=== PATIENT | male | born 1960 | race Caucasian/White ===

== ENCOUNTER 2020-10-18 10:04 | Inpatient (IN) | payer BC, OTHER ==
[~2020-10-18] VITALS: Ht 170.2 cm; Wt 78.3 kg
--- NOTE | 2020-10-18 10:08 | ED Chest Pain ---
General Stated Complaint: CHEST PAIN | LEFT ARM PAIN | SOB History of Present Illness Date Seen by Provider: Oct 18, 2020 Time Seen by Provider: 10:08 Initial Comments 60-year-old male presents with left-sided chest pain. The chest pain started last night radiates to his back and is left arm in his upper neck. He is got some mild shortness of breath. Patient denies any nausea or vomiting. Pain is been pretty much consistent since the pain started. [facility]. Allergies and Home Medications Allergies Coded Allergies: morphine (Verified Allergy, Intermediate, ITCHING AND HALLUCINATIONS, 10/18/20) Patient Home Medication List Home Medication List Reviewed: Yes Review of Systems Review of Systems Constitutional: No chills, No fever Respiratory: Denies Cough; Shortness of Air Cardiovascular: Chest Pain; Denies Palpitations, Denies Syncope Gastrointestinal: Denies Abdominal Pain, Denies Nausea, Denies Vomiting Genitourinary: No Symptoms Reported Musculoskeletal: no symptoms reported Skin: no symptoms reported Psychiatric/Neurological: No Symptoms Reported Endocrine: No Symptoms Reported Past Dxvfamd-Wrozel-Nplyhz Hx Past Med/Social Hx: Reviewed Nursing Past Med/Soc Hx Physical Exam Vital Signs Vital Signs - First Documented 10/18/20 10:04 Temp 36.3 Pulse 75 Resp 18 B/P (MAP) 177/88 (117) Pulse Ox 96 O2 Delivery Room Air Capillary Refill : Height, Weight, BMI Height: '" Weight: lbs. oz. kg; BMI Method: General Appearance: Mild Distress HEENT: PERRL/EOMI Neck: Non Tender, Supple Respiratory: Lungs Clear, Normal Breath Sounds Cardiovascular: Regular Rate, Rhythm, No Edema Gastrointestinal: Non Tender, Soft Extremity: Normal Capillary Refill, Normal Inspection Neurologic/Psychiatric: Alert, Oriented x3, No Motor/Sensory Deficits, Normal Mood/Affect, client relations associate II-XII Norm as Tested Skin: Normal Color, Warm/Dry Progress/Results/Core Measures Results/Orders Lab Results Laboratory Tests Test 10/18/20 10:15 Range/Units White Blood Count 12.4 H 4.3-11.0 10^3/uL Red Blood Count 6.26 H 4.35-5.85 10^6/uL Hemoglobin 18.1 H 13.3-17.7 G/DL Hematocrit 54 40-54 % Mean Corpuscular Volume 86 80-99 FL Mean Corpuscular Hemoglobin 29 25-34 PG Mean Corpuscular Hemoglobin Concent 34 32-36 G/DL Red Cell Distribution Width 14.4 10.0-14.5 % Platelet Count 249 130-400 10^3/uL Mean Platelet Volume 9.5 7.4-10.4 FL Immature Granulocyte % (Auto) 0 % Neutrophils (%) (Auto) 64 42-75 % Lymphocytes (%) (Auto) 26 12-44 % Monocytes (%) (Auto) 8 0-12 % Eosinophils (%) (Auto) 2 0-10 % Basophils (%) (Auto) 1 0-10 % Neutrophils # (Auto) 7.9 H 1.8-7.8 X 10^3 Lymphocytes # (Auto) 3.2 1.0-4.0 X 10^3 Monocytes # (Auto) 1.0 0.0-1.0 X 10^3 Eosinophils # (Auto) 0.2 0.0-0.3 10^3/uL Basophils # (Auto) 0.1 0.0-0.1 10^3/uL Immature Granulocyte # (Auto) 0.0 0.0-0.1 10^3/uL Prothrombin Time 13.1 12.2-14.7 SEC INR Comment 1.0 0.8-1.4 Activated Partial Thromboplast Time 26 24-35 SEC Sodium Level 137 135-145 MMOL/L Potassium Level 4.0 3.6-5.0 MMOL/L Chloride Level 105 98-107 MMOL/L Carbon Dioxide Level 23 21-32 MMOL/L Anion Gap 9 5-14 MMOL/L Blood Urea Nitrogen 11 7-18 MG/DL Creatinine 0.88 0.60-1.30 MG/DL Estimat Glomerular Filtration Rate > 60 BUN/Creatinine Ratio 13 Glucose Level 127 H 70-105 MG/DL Calcium Level 9.5 8.5-10.1 MG/DL Corrected Calcium 9.7 8.5-10.1 MG/DL Magnesium Level 1.7 1.6-2.4 MG/DL Total Bilirubin 0.4 0.1-1.0 MG/DL Aspartate Amino Transf (AST/SGOT) 36 H 5-34 U/L Alanine Aminotransferase (ALT/SGPT) 18 0-55 U/L Alkaline Phosphatase 121 40-136 U/L Myoglobin 37.2 10.0-92.0 NG/ML Troponin I 1.81 *H <0.30 NG/ML Total Protein 7.3 6.4-8.2 GM/DL Albumin 3.8 3.2-4.5 GM/DL My Orders Orders - VERONIAC CHRISTIAN L DO Cbc With Automated Diff (10/18/20 10:08) Magnesium (10/18/20 10:08) Chest 1 View Ap/Pa Only (10/18/20 10:08) Ekg Tracing (10/18/20 10:08) Comprehensive Metabolic Panel (10/18/20 10:08) Myoglobin Serum (10/18/20 10:08) Protime With Inr (10/18/20 10:08) Partial Thromboplastin Time (10/18/20 10:08) O2 (10/18/20 10:08) Monitor-Rhythm Ecg Trace Only (10/18/20 10:08) Lipid Panel (10/19/20 06:00) Ed Iv/Invasive Line Start (10/18/20 10:08) Troponin I Fs (10/18/20 10:08) Aspirin Chewable Tablet (Baby Aspirin Ch (10/18/20 10:30) Fentanyl Injection (Sublimaze Injection (10/18/20 11:00) Clopidogrel Tablet (Plavix Tablet) (10/18/20 11:15) Enoxaparin Injection (Lovenox Injection) (10/18/20 11:15) Metoprolol Succinate (Xl) Tab (Toprol Xl (10/18/20 11:15) Medications Given in ED Current Medications Medications Dose Ordered Sig/Stoney Route Start Time Stop Time Status Last Admin Dose Admin Aspirin 324 mg ONCE ONCE PO 10/18/20 10:30 10/18/20 10:31 DC 10/18/20 11:12 324 MG Clopidogrel Bisulfate 300 mg ONCE ONCE PO 10/18/20 11:15 10/18/20 11:16 10/18/20 11:14 300 MG Enoxaparin Sodium 80 mg ONCE ONCE SC 10/18/20 11:15 10/18/20 11:16 10/18/20 11:14 80 MG Fentanyl Citrate 50 mcg ONCE ONCE IVP 10/18/20 11:00 10/18/20 11:01 DC 10/18/20 11:14 50 MCG Vital Signs/I&O 10/18/20 10:04 Temp 36.3 Pulse 75 Resp 18 B/P (MAP) 177/88 (117) Pulse Ox 96 O2 Delivery Room Air Progress Progress Note : Progress Note Patient with no acute findings on his EKG. However he does not have an elevated troponin. Called and [facility] with [facility] [place] who is on diversion. When called and discussed with Dr. Concepcion bog cutter [facility]. Patient to be given Plavix 300 mg p.o. x1, Lovenox 1 abimael per kg, Toprol-XL 100 mg x 1. Called and discussed with Dr. Matthews who accepted patient. Patient to be transferred to [facility] ICU in stable but guarded condition. Initial ECG Impression Date: Oct 18, 2020 Initial ECG Impression Time: 10:05 Initial ECG Rate: 91 Initial ECG Rhythm: Normal Sinus Initial ECG Impression: Nonspecific Changes Comment Sinus rhythm, right bundle branch block, no acute ST elevation Diagnostic Imaging Diagonstic Imaging: Xray Plain Films/CT/US/NM/MRI: chest Comments [facility], [facility]. [place], [place] NAME: EARLE ALCALA [facility] REC#: [id number] PT STATUS: REG ER : 1960 PHYSICIAN: VERONICA CHRISTIAN DO ADMIT DATE: 10/18/20/ER FS Draft Date of Exam:10/18/20 CHEST 1 VIEW AP/PA ONLY HISTORY: Chest pain since last night COMPARISON: None TECHNIQUE: Frontal view of the chest FINDINGS: Lung volumes are mildly large. There are interstitial opacities in the lung bases, and hyperlucency in the upper lobes, suggestive of chronic obstructive disease with fibrotic changes. No pleural effusion or pneumothorax is seen. A calcified granuloma seen in the right upper lung. The cardiac silhouette is normal in size. IMPRESSION: 1. Findings of chronic obstructive disease and fibrotic changes. An interstitial infiltrate is difficult to exclude. Departure Communication (Admissions) Time/Spoke to Admitting Phy: 11:[address] Ayala with admission to ICU, will give Plavix, Lovenox, Toprol-XL per Dr. Concepcion Time/Spoke to Consulting Phy: 11:00 Impression Primary Impression: Non-ST elevation (NSTEMI) myocardial infarction Disposition: 30 STILL A PATIENT Condition: Critical Admissions Decision to Admit Reason: Admit from ER (General) Decision to Admit/Date: Oct 18, 2020 Time/Decision to Admit Time: 11:00 VERONICA CHRISTIAN DO Oct 18, 2020 10:08
[2020-10-18] MEDS ORDERED: ASPIRIN 81 MG CHEW (CHILDREN'S ASA) PO ONE (10:30)
--- NOTE | 2020-10-18 10:37 | Diagnostic Imaging Report ---
HISTORY: Chest pain since last night COMPARISON: None TECHNIQUE: Frontal view of the chest FINDINGS: Lung volumes are mildly large. There are interstitial opacities in the lung bases, and hyperlucency in the upper lobes, suggestive of chronic obstructive disease with fibrotic changes. No pleural effusion or pneumothorax is seen. A calcified granuloma seen in the right upper lung. The cardiac silhouette is normal in size. IMPRESSION: 1. Findings of chronic obstructive disease and fibrotic changes. An interstitial infiltrate is difficult to exclude. Dictated by: Dictated on workstation # [id number]
[2020-10-18 10:48] LABS: BASOPHILS # (AUTO) 0.1 10^3/uL (0.0-0.1); BASOPHILS % (AUTO) 1 % (0-10); EOSINOPHILS # (AUTO) 0.2 10^3/uL (0.0-0.3); EOSINOPHILS % (AUTO) 2 % (0-10); HEMATOCRIT 54 % (40-54); HEMOGLOBIN 18.1 G/DL (13.3-17.7); LYMPHOCYTES # (AUTO) 3.2 X 10^3 (1.0-4.0); LYMPHOCYTES % (AUTO) 26 % (12-44); MEAN CORPUSCULAR HEMOGLOBIN 29 PG (25-34); MEAN CORPUSCULAR HGB CONC 34 G/DL (32-36); MEAN CORPUSCULAR VOLUME 86 FL (80-99); MEAN PLATELET VOLUME 9.5 FL (7.4-10.4); MONOCYTES % (AUTO) 8 % (0-12); NEUTROPHILS # (AUTO) 7.9 X 10^3 (1.8-7.8); NEUTROPHILS % (AUTO) 64 % (42-75); PLATELET COUNT 249 10^3/uL (130-400); WHITE BLOOD COUNT 12.4 10^3/uL (4.3-11.0)
[2020-10-18 10:49] LABS: PROTHROMBIN TIME PATIENT 13.1 SEC (12.2-14.7)
[2020-10-18 10:52] LABS: ALKALINE PHOSPHATASE 121 U/L (40-136); BILIRUBIN,TOTAL 0.4 MG/DL (0.1-1.0); BUN/CREATININE RATIO 13; CALCIUM 9.5 MG/DL (8.5-10.1); CARBON DIOXIDE 23 MMOL/L (21-32); CHLORIDE 105 MMOL/L (98-107); CREATININE SERUM 0.88 MG/DL (0.60-1.30); GFR ESTIMATED > 60; GLUCOSE 127 MG/DL (70-105); MAGNESIUM 1.7 MG/DL (1.6-2.4); SODIUM 137 MMOL/L (135-145)
[2020-10-18 10:53] LABS: ALANINE AMINOTRANSFERASE 18 U/L (0-55); ALBUMIN 3.8 GM/DL (3.2-4.5); TOTAL PROTEIN 7.3 GM/DL (6.4-8.2)
[2020-10-18] MEDS ORDERED: fentaNYL INJECTION 100 MCG/2 ML AMP IVP ONE (11:00)
[2020-10-18] MEDS ORDERED: meTOproloL SUCCINATE 50 MG (TOPROL XL) TAB PO SCH (11:15)
[2020-10-18] MEDS ORDERED: CLOPIDOGREL 300 MG (PLAVIX) TABLET PO ONE ×2 (11:15→16:25)
[2020-10-18] MEDS ORDERED: ENOXAPARIN 80 MG/0.8 ML (LOVENOX) SYR SC ONE (11:15)
[2020-10-18] MEDS ORDERED: fentaNYL INJECTION 100 MCG/2 ML AMP IVP STA (12:07)
[2020-10-18] MEDS: fentaNYL INJECTION 100 MCG/2 ML AMP IV PRN ×2 (14:30→19:57)
[2020-10-18] MEDS ORDERED: NS IV 1000 ML 1,000 ML IV SCH (14:30)
[2020-10-18] MEDS ORDERED: HEParin (CATH LAB) 2,000 ML IV ONE (14:43)
[2020-10-18] MEDS ORDERED: LIDOCAINE 1% INJ 20 ML 20 ML VIAL ONE (14:43)
[2020-10-18] MEDS ORDERED: fentaNYL INJECTION 100 MCG/2 ML AMP IVP PRN (14:45)
[2020-10-18] MEDS ORDERED: ONDANSETRON 4 MG/2 ML (SDV) Z0FRAN ONE (14:46)
[2020-10-18] MEDS: ONDANSETRON 4 MG/2 ML (SDV) Z0FRAN IVP PRN ×2 (14:52→17:28)
[2020-10-18] MEDS ORDERED: MIDAZOLAM 5 MG/5 ML (VERSED) VIAL ONE (14:54)
[2020-10-18] MEDS ORDERED: fentaNYL INJECTION 100 MCG/2 ML AMP ONE (14:54)
[2020-10-18] MEDS ORDERED: NITRO DRIP 25000 MCG/D5W 250 ML IV ONE (14:55)
[2020-10-18] MEDS ORDERED: CATHETER FLUSH 10 ML SYR IV PRN (15:00)
--- NOTE | 2020-10-18 15:08 | History & Physical-Hospitalist ---
History of Present Illness HPI/Chief Complaint Pt is a 60yoCM with a PMH of PAD, HTN, HLD, and active tobacco abuse who presented to the ER due to chest pain. He works at night and was working last night when he developed chest pain on the left side of his chest that radiated to his left arm and jaw. It persisted until the morning when he decided to seek evaluation in the ER. He complains of accompanying SOB as well and nausea. He has an extensive history of PAD with a reported 10 stents in his legs. He denies a known history of CAD. He reports a recent history of influenza. His has thought he has not looked well for a couple of weeks but he has attributed it to that. His EKG did not have signs concerning for a STEMI but troponin was found to be 1.8 and he was admitted fur further cardiac evaluation. Despite doses of fentanyl (has a morphine allergy), Plavix, ASA, and lovenox he continues to have severe chest pain. Plan is for him to go to the laborer hoisting this afternoon for further evaluation. Source: patient Date Seen 10/18/20 Time Seen by a Provider: 15:03 Attending Physician Tremaine Ayala MD PCP SelfOscar MD Referring Physician Date of Admission Oct 18, 2020 at 14:00 Home Medications & Allergies Home Medications Reviewed patient Home Medication Reconciliation performed by pharmacy medication reconciliations gas technician and/or nursing. Patients Allergies have been reviewed. Allergies Allergies Coded Allergies morphine (Verified Allergy, Intermediate, ITCHING AND HALLUCINATIONS, 10/18/20) Past Qaubmnz-Sbcyyn-Tadxqc Hx Past Med/Social Hx: Reviewed Nursing Past Med/Soc Hx Patient Social History Marrital Status: Employed/Student: employed Alcohol Use: Occasionally Uses Recreational Drug Use: No Smoking Status: Current Everyday Smoker Cigaretts per day: 20 Type Used: Cigarettes 2nd Hand Smoke Exposure: Yes Recent Foreign Travel: No Contact w/other who traveled: No Recent Hopitalizations: No Recent Infectious Disease Expo: No Seasonal Allergies Seasonal Allergies: No Past Medical History Surgeries: Coronary Stent, Neurological, Orthopedic Cardiac: High Cholesterol, Hypertension Neurological: Neuropathy History of Blood Disorders: No Family History Reviewed Nursing Family Hx Heart Disease, Diabetes Review of Systems Constitutional: No chills, No fever; malaise EENTM: no symptoms reported Respiratory: see HPI Cardiovascular: see HPI Gastrointestinal: No abdominal pain; nausea; No vomiting Genitourinary: no symptoms reported Musculoskeletal: no symptoms reported Skin: no symptoms reported Psychiatric/Neurological: No Symptoms Reported Physical Exam Physical Exam Vital Signs Vital Signs - First Documented 10/18/20 10:04 Temp 36.3 Pulse 75 Resp 18 B/P (MAP) 177/88 (117) Pulse Ox 96 O2 Delivery Room Air Capillary Refill : Less Than 3 Seconds Height, Weight, BMI Height: '" Weight: lbs. oz. kg; 27.06 BMI Method: General Appearance: Mild Distress (appears uncomfortable), Thin HEENT: PERRL/EOMI, Moist Mucous Membranes Neck: Normal Inspection, Supple Respiratory: Lungs Clear, No Respiratory Distress Cardiovascular: Regular Rate, Rhythm, No Murmur Gastrointestinal: Normal Bowel Sounds, Non Tender, Soft Extremity: Normal Capillary Refill, No Calf Tenderness, No Pedal Edema Neurologic/Psychiatric: Alert, Oriented x3, Normal Mood/Affect Skin: Normal Color, Warm/Dry Results Results/Procedures Labs Laboratory Tests 10/18/20 10:15 Patient resulted labs reviewed. Imaging: Reviewed Imaging Report Imaging [facility] [place] NAME: EARLE ALCALA [facility] REC#: [id number] PT STATUS: REG ER : 1960 PHYSICIAN: VERONICA CHRISTIAN DO ADMIT DATE: 10/18/20/ER FS Signed Date of Exam:10/18/20 CHEST 1 VIEW AP/PA ONLY HISTORY: Chest pain since last night COMPARISON: None TECHNIQUE: Frontal view of the chest FINDINGS: Lung volumes are mildly large. There are interstitial opacities in the lung bases, and hyperlucency in the upper lobes, suggestive of chronic obstructive disease with fibrotic changes. No pleural effusion or pneumothorax is seen. A calcified granuloma seen in the right upper lung. The cardiac silhouette is normal in size. IMPRESSION: 1. Findings of chronic obstructive disease and fibrotic changes. An interstitial infiltrate is difficult to exclude. Dictated by: Dictated on workstation # [id number] Dict: 10/18/20 1032 Trans: 10/18/20 1123 [id number] Interpreted by: ALINA CASTILLO MD Electronically signed by: ALINA CASTILLO MD 10/18/20 1123 Assessment/Plan Admission Diagnosis NSTEMI Admission Status: Inpatient Order (span 2 midnights) Reason for Inpatient Admission: see below Assessment and Plan NSTEMI PAD HTN HLD Troponin 1.8 on arrival Plan for cath today per cardiology Continue fentanyl for pain ASA, Plavix, Lovenox and Toprol given Zofran for nausea Tobacco abuse Recommended cessation Will need patient education DVT ppx: Lovenox Clinical Quality Measures AMI/AHF: ASA po Prior to arrival: Yes (81 MG) TREMAINE AYALA MD Oct 18, 2020 15:08
[2020-10-18] MEDS ORDERED: diphenhydrAMINE 50 MG/ML INJ (BENADRYL) ONE (15:11)
[2020-10-18] MEDS ORDERED: HEParin 1000 UNIT/ML (10ML VIAL) FOR BOLUS ONE (15:23)
[2020-10-18] MEDS ORDERED: niCARdipine 25 MG/10 ML (CARDENE) AMP IV ONE (15:39)
[2020-10-18] MEDS ORDERED: NS (IVPB) 250 ML ONE (15:40)
[2020-10-18] MEDS ORDERED: EPTIFIBATIDE BOLUS 20 ML IV ONE (15:47)
[2020-10-18] MEDS ORDERED: ASPIRIN 81 MG CHEW (CHILDREN'S ASA) ONE (16:25)
--- NOTE | 2020-10-18 16:26 | Consultation-Cardiology ---
HPI-Cardiology Cardiology Consultation: Date of Consultation 10/18/20 Time Seen by a Provider: 15:40 Date of Admission Attending Physician Trini Ayala MD Admitting Physician Oscar Dorsey MD Consulting Physician JACKELYN LOCK MD, MA, FACP, FACC, FSCAI, CCDS HPI: Chief Complaint: CC: Chest pain HPI: 60 yo man who presented to [facility] ER with 12 hours of chest pain that was midsternal and L parasternal, varying from mod to severe, radiating to the back, associated with some diaphoresis, not experienced before, only partly relieved with s/l NTG. Troponin was elevated. Ac NSTEMI was diagnosed and he was transfer red to this hosp. He was having cp upon arrival. Accordingly, emergency cath was performed after obtaining informed consent of cath and possible ad hoc PCI (see below). Review of Systems-Cardiology Review of Systems Constitutional: malaise; No tiredness, No weight loss, No weight gain Eyes: No vision change Ears/Nose/Throat: No ear discharge, No nasal drainage, No recent hearing loss Respiratory: other (chronic, slowly progressive, exertional shortness of breath) Cardiovascular: As described under HPI Gastrointestinal: No constipation, No diarrhea, No nausea, No vomiting Genitourinary: No dysuria, No hematuria, No urine frequency changes Musculoskeletal: No back pain, No joint pain Skin: No rash, No ulcerations Psychiatric/Neurological: No focal weakness, No syncope Hematologic: No bleeding abnormalities OVZ-Sjvmek-Swmsqo Hx Patient Social History Marrital Status: Employed/Student: employed Smoking Status: Current Everyday Smoker Cigaretts per day: 20 2nd Hand Smoke Exposure: Yes Past Medical History PMH As described under Assessment. Family Medical History Family Medical History: He does not report fam h/o premature CAD or SCD Allergies and Home Medications Allergies Coded Allergies: morphine (Verified Allergy, Intermediate, ITCHING AND HALLUCINATIONS, 10/18/20) Patient Home Medication List Home Medication List Reviewed: Yes Physical Exam-Cardiology Physical Exam Vital Signs/I&O 10/18/20 10/18/20 10/18/20 10/18/20 10:04 13:11 14:00 15:00 Temp 36.3 36.3 Pulse 75 109 76 Resp 18 18 B/P (MAP) 177/88 (117) 147/68 172/112 (132) 143/106 (118) Pulse Ox 96 99 95 O2 Delivery Room Air Room Air Room Air Room Air Capillary Refill : Less Than 3 Seconds Constitutional: AAO x 3, well-developed, well-nourished HEENT: EOMI, hearing is well preserved; No xanthelasmas are seen Neck: carotid pulses are 2 + bilaterally, with good upstrokes Respiratory: No accessory muscle use; other (good bilateral air entry) Cardiovascular: regular rate-rhythm, S1 and S2, systolic murmur (soft REGGIE at card base) Gastrointestinal: No tender; soft; No guarding, No rebound; audible bowel sounds Extremities: No clubbing, No cyanosis, No significant edema Neurologic/Psychiatric: oriented x 3, other (moves all limbs equally) Skin: No rash on exposed areas, No ulcerations on exposed areas Data Review Labs Laboratory Tests 10/18/20 10:15: White Blood Count 12.4H, Red Blood Count 6.26H, Hemoglobin 18.1H, Hematocrit 54, Mean Corpuscular Volume 86, Mean Corpuscular Hemoglobin 29, Mean Corpuscular Hemoglobin Concent 34, Red Cell Distribution Width 14.4, Platelet Count 249, Mean Platelet Volume 9.5, Immature Granulocyte % (Auto) 0, Neutrophils (%) (Auto) 64, Lymphocytes (%) (Auto) 26, Monocytes (%) (Auto) 8, Eosinophils (%) (Auto) 2, Basophils (%) (Auto) 1, Neutrophils # (Auto) 7.9H, Lymphocytes # (Auto) 3.2, Monocytes # (Auto) 1.0, Eosinophils # (Auto) 0.2, Basophils # (Auto) 0.1, Immature Granulocyte # (Auto) 0.0, Prothrombin Time 13.1, INR Comment 1.0, Activated Partial Thromboplast Time 26, Sodium Level 137, Potassium Level 4.0, Chloride Level 105, Carbon Dioxide Level 23, Anion Gap 9, Blood Urea Nitrogen 11, Creatinine 0.88, Estimat Glomerular Filtration Rate > 60, BUN/Creatinine Ratio 13, Glucose Level 127H, Calcium Level 9.5, Corrected Calcium 9.7, Magnesium Level 1.7, Total Bilirubin 0.4, Aspartate Amino Transf (AST/SGOT) 36H, Alanine Aminotransferase (ALT/SGPT) 18, Alkaline Phosphatase 121, Myoglobin 37.2, Troponin I 1.81*H, Total Protein 7.3, Albumin 3.8 Laboratory Tests 10/18/20 10:15 A/P-Cardiology Assessment/Admission Diagnosis CAD - Ac NSTEMI, treated with PCI to RCA on 10/18/20. See below - Card cath on 10/18/20: LMCA Ok, LAD multiple up to 70% lesions in the mid vessel, approx 50% mid LCX, proximally occluded RCA, LVEDP 7, inferior hypokinesis to akinesis, LVEF 40-45%. RCA treated with PTCA and stenting of the prox RCA with Alp Xience 3.0 x 18 stent, mutiple midvessel and distal lesions of up to 60-70% not intervened on, PDA with thrombus in the distal portion. Chronic tobacco use: smokes cigarettes Discussion and Recomendations * DAPT * Statin * Beta-monika and MIO-inhib if bp tolerates * Advised to quit smoking immediately and completely * Monitor labs Clinical Quality Measures AMI/AHF: ASA po Prior to arrival: Yes (81 MG) JACKELYN LOCK MD FACP FAC CCDS Oct 18, 2020 16:26
[2020-10-18] MEDS ORDERED: PATIENT MAY USE OWN MEDS, ALL PO SCH (16:45)
[2020-10-18] MEDS ORDERED: ACETAMINOPHEN 325 MG TABLET PO PRN (16:45)
[2020-10-18] MEDS ORDERED: SUCRALFATE 1 GM (CARAFATE) TAB PO NR (18:15)
[2020-10-18] MEDS ORDERED: PANTOPRAZOLE 40 MG (PROTONIX) VIAL IV NR (18:15)
[2020-10-18 18:17] LABS: HEMOGLOBIN 17.5 g/dL (13.3-17.7)
[2020-10-18] MEDS: NS IV 1000 ML 1,000 ML IV SCH (19:02)
[2020-10-18] MEDS ORDERED: ATROPINE INJECTION 1 MG/10 ML SYR (ABBOTT) ONE (19:35)
--- NOTE | 2020-10-18 19:58 | CARDIAC CATHETERIZATION ---
DATE OF SERVICE: 10/18/2020 CARDIAC CATHETERIZATION REPORT AND CORONARY INTERVENTION HISTORY: The patient is a 60-year-old gentleman with coronary risk factors, who presented to the emergency room at [facility] with acute non-ST elevation myocardial infarction. He was transferred to this hospital. He was having symptoms at the time of arrival. We proceeded with emergency cardiac catheterization after having obtained an informed consent for cardiac catheterization and possible ad hoc coronary intervention. DESCRIPTION OF PROCEDURE: He was brought to the cardiac catheterization laboratory. Right groin was prepared and draped in the usual sterile fashion. Lidocaine 1% was used for local anesthesia. Modified Seldinger technique was used to advance a 6-Portuguese sheath into the right femoral artery. A 6-Portuguese JL4 catheter was used for left coronary angiography. A 6-Portuguese JR4 catheter was used for right coronary angiography. A 6-Portuguese pigtail catheter was used for left heart catheterization and left ventricular angiography. Subsequently, percutaneous intervention was carried out through the right coronary artery that is described below. PERCUTANEOUS INTERVENTION OF THE RIGHT CORONARY ARTERY: We used 6-Portuguese JR4 guide catheter with a short tip. We engaged the right coronary artery and advanced a ChoICE floppy wire to cross the complete occlusion in the proximal portion of the right coronary. The tip of the wire was placed in the distal vessel. Balloon angioplasty was carried out with Emerge 2.0 x 20 mm, 2.0 x 30 mm, and 2.5 x 30 mm balloon. We also used a thrombectomy catheter for clot extraction. Finally, the proximal part of the right coronary artery was stented with Alpine Xience 3.0 x 18 mm stent that was deployed at 20 atmospheres. Subsequent angiography revealed 0% residual stenosis at the site of complete occlusion and flow in the vessel has improved from FIORDALIZA 0 to FIORDALIZA 3. The mid and the distal right coronary artery had multiple lesions of up to approximately 60% to 70%, which were not intervened on. The posterior descending branch of the right coronary artery has a distal embolus. The patient tolerated the procedure well. HEMODYNAMICS: Left ventricular end-diastolic pressure following coronary angiography was 7 mmHg. There is no significant pressure gradient on pullback across the aortic valve. Ascending aortic pressure was 119/65 with a mean of 85 mmHg. CORONARY ANGIOGRAPHY: Left main coronary artery is free of significant disease. Left anterior descending artery has multiple 60% to 70% stenosis in its mid portion. The left circumflex artery has approximately 50% stenosis in mid portion. Right coronary artery was completely occluded in its proximal portion and was collateralized by the left coronary system. Following percutaneous intervention, the proximal right coronary artery has 0% residual stenosis (following deployment of Alpine Xience 3.0 x 18 mm stent) and the mid and distal right coronary artery had lesions of up to 60% to 70% that were not intervened on. The very distal portion of the posterior descending artery has thrombus in it. LEFT VENTRICULAR ANGIOGRAPHY: Left ventricular angiography was carried out in the right anterior oblique projection. Global left ventricular systolic function is impaired. There is inferior hypokinesis to akinesis. Left ventricular ejection fraction of 40% to 45%. DISCUSSION AND RECOMMENDATIONS: Dual antiplatelet therapy has been initiated. We will give beta-blockers and MIO inhibitors as tolerated. Statin therapy is being initiated. We have advised him to quit smoking immediately and completely. CONCLUSIONS: 1. Coronary artery disease primarily consisting of multiple 70% stenosis in the mid left anterior descending, 50% mid vessel stenosis of the left circumflex, and complete proximal occlusion of the right coronary, to which successful stenting was carried out with an Alpine Xience 3.0 x 18 mm stent. The mid and distal right coronary have multiple stenoses up to approximately 60% to 70% that were not intervened on and the distal portion of the posterior descending branch has thrombus. 2. Impairment of global left ventricular systolic function with ejection fraction of 40% to 45%. 3. Inferior hypokinesis to akinesis. 4. Normal left ventricular end-diastolic pressure. Job ID: [id number] DocumentID: [id number] Dictated Date: 10/18/2020 17:38:00 Steam Pan Sponger Date: 10/18/2020 19:57:10 Dictated By: JACKELYN LOCK MD, MA, FACP, FACC, MTDD
[2020-10-18] MEDS: SUCRALFATE 1 GM (CARAFATE) TAB PO SCH (21:51)
[2020-10-18] MEDS ORDERED: ENOXAPARIN 80 MG/0.8 ML (LOVENOX) SYR SC SCH (23:00)
[2020-10-19] MEDS: NS IV 1000 ML 1,000 ML IV SCH (02:34)
[2020-10-19 03:57] LABS: BASOPHILS # (AUTO) 0.1 10^3/uL (0.0-0.1); BASOPHILS % (AUTO) 1 % (0-10); EOSINOPHILS # (AUTO) 0.2 10^3/uL (0.0-0.3); EOSINOPHILS % (AUTO) 3 % (0-10); HEMATOCRIT 50 % (40-54); HEMOGLOBIN 16.2 g/dL (13.3-17.7); LYMPHOCYTES # (AUTO) 1.7 10^3/uL (1.0-4.0); LYMPHOCYTES % (AUTO) 24 % (12-44); MEAN CORPUSCULAR HEMOGLOBIN 29 pg (25-34); MEAN CORPUSCULAR HGB CONC 33 g/dL (32-36); MEAN CORPUSCULAR VOLUME 89 fL (80-99); MEAN PLATELET VOLUME 10.2 fL (9.0-12.2); MONOCYTES # (AUTO) 0.6 10^3/uL (0.0-1.0); MONOCYTES % (AUTO) 9 % (0-12); NEUTROPHILS # (AUTO) 4.5 10^3/uL (1.8-7.8); NEUTROPHILS % (AUTO) 63 % (42-75); PLATELET COUNT 239 10^3/uL (130-400); WHITE BLOOD COUNT 7.1 10^3/uL (4.3-11.0)
--- NOTE | 2020-10-19 04:17 | Pulmonary Consultation ---
History of Present Illness History of Present Illness Date Seen by Provider: Oct 19, 2020 Time Seen by Provider: 04:15 Date of Admission Allergies and Home Medications Allergies Coded Allergies: morphine (Verified Allergy, Intermediate, ITCHING AND HALLUCINATIONS, 10/18/20) Past Dzhptbg-Kjepzy-Syurjg Hx Past Med/Social Hx: Reviewed Nursing Past Med/Soc Hx Patient Social History Alcohol Use: Occasionally Uses Smoking Status: Current Everyday Smoker Type Used: Cigarettes 2nd Hand Smoke Exposure: Yes Recent Infectious Disease Expo: No Recent Hopitalizations: No Alcohol Use?: Yes Seasonal Allergies Seasonal Allergies: No Past Medical History Surgeries: Yes (10 STENTS, R KNEE SCOPE, L KNEE REPLACEMENT, RT ARM NERVE SX) Coronary Stent, Neurological, Orthopedic Respiratory: No Cardiac: Yes High Cholesterol, Hypertension Neuropathy Genitourinary: No Gastrointestinal: No Musculoskeletal: No Endocrine: No HEENT: No Cancer: No Psychosocial: No Integumentary: No Blood Disorders: No Family Medical History Reviewed Nursing Family Hx Heart Disease, Diabetes Review of Systems Time Seen by Provider: 04:17 Sepsis Event Evaluation Height, Weight, BMI Height: '" Weight: lbs. oz. kg; 27.06 BMI Method: Exam Exam Vital Signs Date Time Temp Pulse Resp B/P (MAP) Pulse Ox O2 Delivery O2 Flow Rate FiO2 10/19/20 01:00 66 10/18/20 23:00 65 106/66 (79) 89 Room Air 10/18/20 22:00 75 114/80 (91) 92 Room Air 10/18/20 21:00 65 106/73 (84) 94 Room Air 10/18/20 20:20 70 114/77 (89) 93 Room Air 10/18/20 20:15 72 120/76 (91) 93 Room Air 10/18/20 20:10 70 118/84 (95) 93 Room Air 10/18/20 20:05 68 112/79 (90) 93 Room Air 10/18/20 20:00 93 Room Air 10/18/20 20:00 69 118/84 (95) 91 Room Air 10/18/20 19:58 71 119/79 (92) 94 Room Air Arterial Line 10/18/20 19:00 65 108/59 (75) 91 Nasal Cannula 2.00 10/18/20 19:00 66 10/18/20 19:00 65 108/59 (75) 95 Room Air 10/18/20 18:45 65 119/65 (83) 93 Nasal Cannula 2.00 10/18/20 18:30 64 119/65 (83) 93 Nasal Cannula 2.00 10/18/20 18:15 63 113/62 (79) 94 Nasal Cannula 2.00 10/18/20 18:00 69 136/75 (95) 97 Nasal Cannula 2.00 10/18/20 17:45 63 127/67 (87) 94 Nasal Cannula 2.00 10/18/20 17:30 68 142/73 (96) 93 Nasal Cannula 2.00 10/18/20 17:15 64 132/71 (91) 95 Nasal Cannula 2.00 10/18/20 17:00 66 149/79 (102) 97 Nasal Cannula 2.00 Automatic Cuff 10/18/20 16:43 89 Room Air 10/18/20 15:00 76 143/106 (118) 95 Room Air 10/18/20 14:30 95 Room Air 10/18/20 14:30 95 Room Air 10/18/20 14:16 70 10/18/20 14:00 172/112 (132) Room Air 10/18/20 13:11 36.3 109 18 147/68 99 Room Air 10/18/20 10:04 36.3 75 18 177/88 (117) 96 Room Air I & O 10/19/20 07:00 Intake Total 1240 ml Output Total 575 ml Balance 665 ml Height & Weight Height: '" Weight: lbs. oz. kg; 27.06 BMI Method: General Appearance: Mild Distress HEENT: PERRL/EOMI Neck: Non Tender, Supple Respiratory: Lungs Clear, Normal Breath Sounds Cardiovascular: Regular Rate, Rhythm, No Edema Capillary Refill: Less Than 3 Seconds Extremity: Normal Capillary Refill, Normal Inspection Neurologic/Psychiatric: Alert, Oriented x3, No Motor/Sensory Deficits, Normal Mood/Affect, rendering equipment tender II-XII Norm as Tested Skin: Normal Color, Warm/Dry Results Lab Laboratory Tests 10/18/20 10:15 10/18/20 18:08 10/19/20 03:10 Assessment/Plan Assessment/Plan NSTEMI s/p CATH stent to RCA -Cardiology following Tobacco dependance -Education Probable COPD -Out pt PFT Nocturnal hypoxia -Out pt testing PAD HTN STEVE CARTER DO Oct 19, 2020 04:17
[2020-10-19 04:28] LABS: BUN/CREATININE RATIO 16; CALCIUM 8.3 MG/DL (8.5-10.1); CARBON DIOXIDE 20 MMOL/L (21-32); CHLORIDE 113 MMOL/L (98-107); CHOLESTEROL 152 MG/DL (< 200); CREATININE SERUM 0.96 MG/DL (0.60-1.30); GFR ESTIMATED > 60; GLUCOSE 134 MG/DL (70-105); HDL CHOLESTEROL 21 MG/DL (40-60); MAGNESIUM 1.7 MG/DL (1.6-2.4); PHOSPHORUS 3.2 MG/DL (2.3-4.7); SODIUM 140 MMOL/L (135-145); TRIGLYCERIDES 208 MG/DL (<150); VLDL CHOLESTEROL 42 MG/DL (5-40)
[2020-10-19] MEDS: SUCRALFATE 1 GM (CARAFATE) TAB PO SCH ×4 (06:22→19:44)
--- NOTE | 2020-10-19 07:36 | Diagnostic Imaging Report ---
EXAMINATION: Chest radiograph, portable AP view. DATE: 10/19/2020 2:42 AM INDICATION: 60-year-old male, dyspnea. COMPARISON: October 18, 2020. FINDINGS: Heart size and mediastinal contours are unchanged. There is no identified pneumothorax. There is no large pleural effusion. There are fairly coarse appearing interstitial opacities bilaterally which are grossly unchanged. There is graft material overlying the mid abdomen. IMPRESSION: 1. Coarse interstitial appearing lung opacities which is similar to the comparison exam. This may reflect chronic lung changes although given lack of earlier comparison imaging, this is difficult to definitively state. Pulmonary edema and atypical infectious etiologies would be in the differential diagnosis. Recommend comparison with prior imaging if available. Dictated by: Dictated on workstation # [id number]
[2020-10-19] MEDS: ASPIRIN 81 MG CHEW (CHILDREN'S ASA) PO SCH (08:01)
[2020-10-19] MEDS: PANTOPRAZOLE 40 MG (PROTONIX) VIAL IV SCH ×2 (08:02→19:43)
[2020-10-19] MEDS: CLOPIDOGREL 75 MG (PLAVIX) TABLET PO SCH (08:02)
--- NOTE | 2020-10-19 08:24 | Progress Note - Hospitalist ---
Subjective HPI/CC On Admission Date Seen by Provider: Oct 19, 2020 Time Seen by Provider: 08:18 Pt is a 60yoCM with a PMH of PAD, HTN, HLD, and active tobacco abuse who presented to the ER due to chest pain. He works at night and was working last night when he developed chest pain on the left side of his chest that radiated to his left arm and jaw. It persisted until the morning when he decided to seek evaluation in the ER. He complains of accompanying SOB as well and nausea. He has an extensive history of PAD with a reported 10 stents in his legs. He denies a known history of CAD. He reports a recent history of influenza. His has thought he has not looked well for a couple of weeks but he has attributed it to that. His EKG did not have signs concerning for a STEMI but troponin was found to be 1.8 and he was admitted fur further cardiac evaluation. Despite doses of fentanyl (has a morphine allergy), Plavix, ASA, and lovenox he continues to have severe chest pain. Plan is for him to go to the builder's labourer this afternoon for further evaluation. Subjective/Events-last exam Pt reports doing well from a cardiac standpoint. No further chest pain. SOB resolved. Only complaint is that he is hungry and is awaiting breakfast tray. Objective Exam Vital Signs Vital Signs Date Time Temp Pulse Resp B/P (MAP) Pulse Ox O2 Delivery O2 Flow Rate FiO2 10/19/20 07:55 94 Room Air 10/19/20 07:25 37.2 10/19/20 06:00 63 110/73 (85) 10/18/20 19:00 2.00 10/18/20 13:11 18 Capillary Refill : Less Than 3 Seconds General Appearance: No Apparent Distress, WD/WN Respiratory: Lungs Clear, No Respiratory Distress Cardiovascular: Regular Rate, Rhythm, No Murmur Neurologic/Psychiatric: Alert, Oriented x3, Normal Mood/Affect Results/Procedures Lab Laboratory Tests 10/18/20 10:15 10/18/20 18:08 10/19/20 03:10 Patient resulted labs reviewed. Imaging: Reviewed Imaging Report Assessment/Plan Assessment and Plan Assess & Plan/Chief Complaint NSTEMI PAD HTN HLD Troponin up to 6 last night Underwent cardiac cath with stenting to RCA Continue DAPT, Toprol, Lipitor Echo pending Zofran for nausea Per RN was supposed to go back to the builder's labourer today for staged procedure but per builder's labourer today he is not scheduled to return, Cardiology managing; defer to their expertise Hematemesis Vomited up some blood last night Hemoglobin has been stable T&S done last night Continue PPI and carafate Given stent done yesterday he needs to continue on DAPT Tobacco abuse Recommended cessation Will need patient education DVT ppx: Hold Lovenox for now and continue SCDs with hematemesis Clinical Quality Measures AMI/AHF: ASA po Prior to arrival: Yes (81 MG) TREMAINE MANUEL MD Oct 19, 2020 08:24
--- NOTE | 2020-10-19 08:57 | Progress Note - Cardiology ---
Cardiology SOAP Progress Note Subjective: In bed Wants to go home Family x1 at the bedside No c/o CP, SOB, palpitations No c/o right groin discomfort Objective: I&O/Vital Signs 10/19/20 10/19/20 10/20/20 10/20/20 20:00 23:54 01:00 04:00 Temp 36.6 36.4 Pulse 80 71 72 Resp 18 20 B/P (MAP) 125/73 (90) 144/74 (97) Pulse Ox 92 94 O2 Delivery Room Air Room Air Room Air 10/20/20 07:00 Pulse 66 10/20/20 00:00 Intake Total 1120 ml Output Total 250 ml Balance 870 ml Side: right Groin site without hematoma: Yes Condition: DP/PT pulses palpable, extremity w/d/p Bruising: mild bruising Constitutional: AAO x 3, well-developed, well-nourished Respiratory: No accessory muscle use; other (good bilateral air entry) Cardiovascular: regular rate-rhythm, S1 and S2, systolic murmur (soft REGGIE at card base) Gastrointestional: No tender; soft; No guarding, No rebound; audible bowel sounds Extremities: No clubbing, No cyanosis, No significant edema Neurologic/Psychiatric: oriented x 3, other (moves all limbs equally) Skin: No rash on exposed areas, No ulcerations on exposed areas Results/Procedures: Labs Laboratory Tests 10/20/20 04:24: White Blood Count 10.0, Red Blood Count 5.69H, Hemoglobin 16.4, Hematocrit 50, Mean Corpuscular Volume 88, Mean Corpuscular Hemoglobin 29, Mean Corpuscular Hemoglobin Concent 33, Red Cell Distribution Width 13.8, Platelet Count 201, Mean Platelet Volume 9.5, Immature Granulocyte % (Auto) 1, Neutrophils (%) (Auto) 66, Lymphocytes (%) (Auto) 22, Monocytes (%) (Auto) 8, Eosinophils (%) (Auto) 3, Basophils (%) (Auto) 1, Neutrophils # (Auto) 6.6, Lymphocytes # (Auto) 2.2, Monocytes # (Auto) 0.8, Eosinophils # (Auto) 0.3, Basophils # (Auto) 0.1, Immature Granulocyte # (Auto) 0.1, Sodium Level 138, Potassium Level 4.2, Chloride Level 109H, Carbon Dioxide Level 21, Anion Gap 8, Blood Urea Nitrogen 15, Creatinine 0.82, Estimat Glomerular Filtration Rate > 60, BUN/Creatinine Ratio 18, Glucose Level 96, Calcium Level 8.3L, Phosphorus Level 2.8, Magnesium Level 1.6 Microbiology 10/18/20 MRSA Screen - Final, Complete Procedures NAME: EAR[facility] REC#: [id number] PT STATUS: ADM IN : 1960 PHYSICIAN: TREMAINE MANUEL MD ADMIT DATE: 10/18/20/ICU Signed Date of Exam:10/19/20 CHEST 1 VIEW, AP/PA ONLY EXAMINATION: Chest radiograph, portable AP view. DATE: 10/19/2020 2:42 AM INDICATION: 60-year-old male, dyspnea. COMPARISON: October 18, 2020. FINDINGS: Heart size and mediastinal contours are unchanged. There is no identified pneumothorax. There is no large pleural effusion. There are fairly coarse appearing interstitial opacities bilaterally which are grossly unchanged. There is graft material overlying the mid abdomen. IMPRESSION: 1. Coarse interstitial appearing lung opacities which is similar to the comparison exam. This may reflect chronic lung changes although given lack of earlier comparison imaging, this is difficult to definitively state. Pulmonary edema and atypical infectious etiologies would be in the differential diagnosis. Recommend comparison with prior imaging if available. Dictated by: Dictated on workstation # [id number] Dict: 10/19/20 0717 Trans: 10/19/20 0751 [facility] [id number] Interpreted by: CHARLEEN NINO MD Electronically signed by: CHARLEEN NINO MD 10/19/20 0751 A/P: Assessment: CAD - Ac NSTEMI, treated with PCI to RCA on 10/18/20. See below - Card cath on 10/18/20: LMCA Ok, LAD multiple up to 70% lesions in the mid vessel, approx 50% mid LCX, proximally occluded RCA, LVEDP 7, inferior hypokinesis to akinesis, LVEF 40-45%. RCA treated with PTCA and stenting of the prox RCA with Alp Xience 3.0 x 18 stent, mutiple midvessel and distal lesions of up to 60-70% not intervened on, PDA with thrombus in the distal portion. Chronic tobacco use: smokes cigarettes Plan: * Continue current regimen * DAPT * Statin * Beta-monika and MIO-inhib if bp tolerates * Advised to quit smoking immediately and completely * Monitor labs Clinical Quality Measures AMI/AHF: ASA po Prior to arrival: Yes (81 MG) MARGARET DE LA VEGA Oct 19, 2020 08:57
[2020-10-19] MEDS ORDERED: ASPIRIN 325 MG (5 GR) TABLET PO SCH (09:00)
[2020-10-19] MEDS ORDERED: ASPI-1238 PO (09:23)
[2020-10-19] MEDS ORDERED: EZET10TA17 PO (09:23)
[2020-10-19] MEDS ORDERED: LISI40TA9 PO (09:23)
--- NOTE | 2020-10-19 16:39 | Progress Note - Cardiology ---
Cardiology SOAP Progress Note Subjective: No cp or palp or syncope or groin discomfort No shortness of breath at rest Some gen malaise No n/v/d Objective: I&O/Vital Signs 10/19/20 10/19/20 10/19/20 10/19/20 05:00 06:00 07:00 07:00 Pulse 65 63 60 72 B/P (MAP) 99/73 (82) 110/73 (85) 112/75 (87) Pulse Ox 91 94 92 O2 Delivery Room Air Room Air Room Air 10/19/20 10/19/20 10/19/20 10/19/20 07:25 07:55 08:00 09:00 Temp 37.2 Pulse 76 84 B/P (MAP) 117/77 (90) 120/79 (93) Pulse Ox 94 94 95 O2 Delivery Room Air Room Air Room Air 10/19/20 10/19/20 10/19/20 10/19/20 10:00 11:11 11:42 13:00 Temp 37.2 Pulse 72 70 77 Resp 18 B/P (MAP) 116/78 (91) 150/76 (100) Pulse Ox 93 96 96 O2 Delivery Room Air Room Air Room Air 10/19/20 16:15 Temp 37.0 Pulse 72 Resp 16 B/P (MAP) 163/76 (105) Pulse Ox 93 O2 Delivery Room Air 10/19/20 00:00 Intake Total 240 ml Output Total 575 ml Balance -335 ml Side: right Groin site without hematoma: Yes Condition: DP/PT pulses palpable, extremity w/d/p Bruising: mild bruising Constitutional: AAO x 3, well-developed, well-nourished Respiratory: No accessory muscle use; other (good bilateral air entry) Cardiovascular: regular rate-rhythm, S1 and S2, systolic murmur (soft REGGIE at card base) Gastrointestional: No tender; soft; No guarding, No rebound; audible bowel sounds Extremities: No clubbing, No cyanosis, No significant edema Neurologic/Psychiatric: oriented x 3, other (moves all limbs equally) Skin: No rash on exposed areas, No ulcerations on exposed areas Results/Procedures: Labs Laboratory Tests 10/18/20 18:08: Hemoglobin 17.5, Hematocrit 54, Troponin I 6.887*H 10/19/20 03:10: Hemoglobin 16.2, Hematocrit 50, White Blood Count 7.1, Red Blood Count 5.60H, Mean Corpuscular Volume 89, Mean Corpuscular Hemoglobin 29, Mean Corpuscular Hemoglobin Concent 33, Red Cell Distribution Width 14.3, Platelet Count 239, Mean Platelet Volume 10.2, Immature Granulocyte % (Auto) 0, Neutrophils (%) (Auto) 63, Lymphocytes (%) (Auto) 24, Monocytes (%) (Auto) 9, Eosinophils (%) (Auto) 3, Basophils (%) (Auto) 1, Neutrophils # (Auto) 4.5, Lymphocytes # (Auto) 1.7, Monocytes # (Auto) 0.6, Eosinophils # (Auto) 0.2, Basophils # (Auto) 0.1, Immature Granulocyte # (Auto) 0.0, Sodium Level 140, Potassium Level 4.0, Chloride Level 113H, Carbon Dioxide Level 20L, Anion Gap 7, Blood Urea Nitrogen 15, Creatinine 0.96, Estimat Glomerular Filtration Rate > 60, BUN/Creatinine Ratio 16, Glucose Level 134H, Calcium Level 8.3L, Phosphorus Level 3.2, Magnesium Level 1.7, Triglycerides Level 208H, Cholesterol Level 152, LDL Cholesterol Direct 118, VLDL Cholesterol 42H, HDL Cholesterol 21L Microbiology 10/18/20 MRSA Screen - Final, Complete Laboratory Tests 10/18/20 10:15 10/18/20 18:08 10/19/20 03:10 A/P: Assessment: CAD - Ac NSTEMI, treated with PCI to RCA on 10/18/20. See below - Card cath on 10/18/20: LMCA Ok, LAD multiple up to 70% lesions in the mid vessel, approx 50% mid LCX, proximally occluded RCA, LVEDP 7, inferior hypokinesis to akinesis, LVEF 40-45%. RCA treated with PTCA and stenting of the prox RCA with Alp Xience 3.0 x 18 stent, mutiple midvessel and distal lesions of up to 60-70% not intervened on, PDA with thrombus in the distal portion. Chronic tobacco use: smokes cigarettes Plan: * I had a long and detailed discussion with him regarding his cardiac findings, interventions undertaken, treatment plan, and the need for risk factor modification and how to do it * Continue current regimen * DAPT * Statin * Beta-monika and MIO-inhib if bp tolerates * Advised to quit smoking immediately and completely * Monitor labs * Transfer to floor * Increase ambulation Clinical Quality Measures AMI/AHF: ASA po Prior to arrival: Yes (81 MG) JACKELYN LOCK MD FACP FAC CCDS Oct 19, 2020 16:39
--- NOTE | 2020-10-19 19:02 | CONSULTATION REPORT ---
DATE OF SERVICE: 10/19/2020 ATTENDING PHYSICIAN: Dr. Ayala. HISTORY OF PRESENT ILLNESS: The patient is a 60-year-old male who was seen in consultation with Dr. Whatley. He presented to the ER yesterday morning with chest pain. 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 He reports that this did persist through the morning when he then decided to seek evaluation in the ER. He did complain of shortness of breath as well as nausea. He does have an extensive medical history including peripheral artery disease, hypertension, hyperlipidemia and has also had 10 stents in his legs. He did have an EKG, which did not show any signs concerning for a STEMI, but his troponin was found to be 1.8 and was admitted for further cardiac workup. We did undergo cardiac catheterization yesterday. He did, however, develop nausea as well as an episode of coffee ground emesis last night. Upon further questioning today, he denies any nausea or vomiting today as well as no heartburn or reflux. He reports that he has not had any hematemesis or coffee ground emesis today. He also denied any abdominal pain. He reports that he has had an EGD before in the past, but reports that there was nothing found. PAST MEDICAL HISTORY: Hyperlipidemia, hypertension, peripheral artery disease, neuropathy. PAST SURGICAL HISTORY: Coronary stents placed, right knee arthroscopy, left total knee replacement, right arm nerve surgery, back surgery. ALLERGIES: MORPHINE. MEDICATIONS: Aspirin 81 mg daily, Zetia 10 mg daily, lisinopril 20 mg daily. SOCIAL HISTORY: Positive for smoke for 40+ pack years. Social for alcohol. FAMILY HISTORY: Heart disease, diabetes. VITAL SIGNS: Blood pressure 150/76, pulse 70, respirations 18, pulse ox 96% on room air. REVIEW OF SYSTEMS: This is a well-nourished male in no acute distress. He is not experiencing any shortness of breath or difficulty breathing. No chest pain, palpitations or diaphoresis. No nausea or vomiting. No abdominal pain. No diarrhea or constipation. No red blood per rectum. No dark tarry stools. No fever or chills. No recent inadvertent weight loss. He did report an episode of coffee ground emesis last night. All other review of systems negative. PHYSICAL EXAMINATION: CHEST: Clear. Good breath sounds bilaterally. HEART: Regular. HEENT: No scleral icterus. NECK: No cervical lymphadenopathy. ABDOMEN: Soft, nontender, nondistended. SKIN: Warm, dry and pink. NEUROLOGIC: Awake, alert and oriented x3. ASSESSMENT AND PLAN: A 60-year-old male with hypertension, hyperlipidemia, peripheral artery disease with non-STEMI, who is status post cardiac catheterization and stent to the right coronary artery, who also had an episode of hematemesis last night. At this time, it was discussed with the patient about proceeding with an EGD to evaluate any potential ulcers or other abnormalities. He reports that at this time he would just like to continue with medical management. His hemoglobin is stable at 16.2 and is currently asymptomatic. We will have him continue with his PPI as well as Carafate. He is instructed that if he should have any recurrent symptoms, he is to call or return. Job ID: [id number] DocumentID: [id number] Dictated Date: 10/19/2020 15:16:15 Manager [employer] Date: 10/19/2020 19:02:13 Dictated By: FRANKLYN MART
[2020-10-20 04:28] LABS: BASOPHILS # (AUTO) 0.1 10^3/uL (0.0-0.1); BASOPHILS % (AUTO) 1 % (0-10); EOSINOPHILS # (AUTO) 0.3 10^3/uL (0.0-0.3); EOSINOPHILS % (AUTO) 3 % (0-10); HEMATOCRIT 50 % (40-54); HEMOGLOBIN 16.4 g/dL (13.3-17.7); LYMPHOCYTES # (AUTO) 2.2 10^3/uL (1.0-4.0); LYMPHOCYTES % (AUTO) 22 % (12-44); MEAN CORPUSCULAR HEMOGLOBIN 29 pg (25-34); MEAN CORPUSCULAR HGB CONC 33 g/dL (32-36); MEAN CORPUSCULAR VOLUME 88 fL (80-99); MEAN PLATELET VOLUME 9.5 fL (9.0-12.2); MONOCYTES # (AUTO) 0.8 10^3/uL (0.0-1.0); MONOCYTES % (AUTO) 8 % (0-12); NEUTROPHILS # (AUTO) 6.6 10^3/uL (1.8-7.8); NEUTROPHILS % (AUTO) 66 % (42-75); PLATELET COUNT 201 10^3/uL (130-400)
[2020-10-20 04:39] LABS: CHLORIDE 109 MMOL/L (98-107); POTASSIUM 4.2 MMOL/L (3.6-5.0); SODIUM 138 MMOL/L (135-145)
[2020-10-20 04:40] LABS: CALCIUM 8.3 MG/DL (8.5-10.1)
[2020-10-20 04:41] LABS: GLUCOSE 96 MG/DL (70-105)
[2020-10-20 04:42] LABS: CARBON DIOXIDE 21 MMOL/L (21-32)
[2020-10-20 04:44] LABS: CREATININE SERUM 0.82 MG/DL (0.60-1.30); GFR ESTIMATED > 60; PHOSPHORUS 2.8 MG/DL (2.3-4.7)
[2020-10-20 04:45] LABS: BUN/CREATININE RATIO 18
[2020-10-20 04:47] LABS: MAGNESIUM 1.6 MG/DL (1.6-2.4)
[2020-10-20] MEDS: SUCRALFATE 1 GM (CARAFATE) TAB PO SCH ×2 (06:15→11:00)
[2020-10-20] MEDS ORDERED: ATOR40TA PO (07:50)
[2020-10-20] MEDS ORDERED: ASPI81TA64 PO (07:50)
[2020-10-20] MEDS ORDERED: METO-351 PO (07:50)
[2020-10-20] MEDS ORDERED: CLOP75TA28 PO (07:50)
[2020-10-20] MEDS ORDERED: LISI10TA25 PO (07:50)
[2020-10-20 08:00] VITALS: BP 143/86
[2020-10-20] MEDS ORDERED: lisINopril 10 MG (PRINIVIL) TABLET PO ONE (08:00)
[2020-10-20] MEDS: ASPIRIN 81 MG CHEW (CHILDREN'S ASA) PO SCH (08:25)
[2020-10-20] MEDS: CLOPIDOGREL 75 MG (PLAVIX) TABLET PO SCH (08:25)
[2020-10-20] MEDS: PANTOPRAZOLE 40 MG (PROTONIX) VIAL IV SCH (08:27)
--- NOTE | 2020-10-20 10:21 | Discharge Inst-Simple/Standard ---
Discharge Inst-Standard Discharge Medications New, Converted or Re-Newed RX: Transmitted to Pharmacy Patient Instructions/Follow Up Plan of Care/Instructions/FU: Please continue to take your medications as written. Please follow up with your primary care doctor to follow up this hospital stay and with cardiology as scheduled. Activity as Tolerated: Yes Discharge Diet: Cardiac Diet Return to The Hospital For: Chest pain, shortness of breath, fever, cough, confusion, vomiting up blood or dark or bloody stools, if you feel you are getting worse. TREMAINE MANUEL MD Oct 20, 2020 10:20
--- NOTE | 2020-10-20 10:26 | Discharge Summary ---
Diagnosis/Chief Complaint Date of Admission Oct 18, 2020 at 14:00 Date of Discharge Discharge Date: Oct 20, 2020 Admission Diagnosis NSTEMI Primary Care Oscar Dorsey MD Discharge Summary Procedures/Consulations Dr Butterfield- Cardiology Dr Whatley- Surgery Discharge Physical Exam Allergies: Coded Allergies: morphine (Verified Allergy, Intermediate, ITCHING AND HALLUCINATIONS, 10/18/20) Vitals & I&Os Vital Signs Date Time Temp Pulse Resp B/P (MAP) Pulse Ox O2 Delivery O2 Flow Rate FiO2 10/20/20 11:08 37.1 69 20 143/86 97 Room Air 2.00 General Appearance: No Apparent Distress, WD/WN Respiratory: Lungs Clear, No Respiratory Distress Cardiovascular: Regular Rate, Rhythm, No Murmur Neurologic/Psychiatric: Alert, Oriented x3 Hospital Course Pt was admitted due to NSTEMI and was taken urgently to pharmacy laboratory technician for interve ntion. He had stented to the RCA done and did well. He was advised to quit smoking. He was to be discharged home without incident on day of discharge but he was unwilling to wait for cardiology to evaluate him. He was discharged AMA to follow up with Dr Dorsey and Dr Butterfield as an outpatient. Of note he did have some hematemesis the night of his cath which resolved with PPI and carafate. Surgery was consulted. Hemoglobin remained stable. He ultimately refused these medications and any intervention. We did discuss concerns for recurrent GI bleed and signs and symptoms. He at first was resistant to hearing this information but ultimately did listen to return precautions given continued need for antiplatelet therapy. Labs (last 24 hrs) Microbiology 10/18/20 MRSA Screen - Final, Complete Patient resulted labs reviewed. Pending Labs Imaging: Reviewed Imaging Report Discussion & Recommendations Discharge Planning: >30 minutes discharge planning Discharge Home Medications: Active Scripts Active Lisinopril 10 Mg Tablet 10 Mg PO DAILY Toprol Xl (Metoprolol Succinate) 25 Mg Tab.er.24h 25 Mg PO DAILY Children's Aspirin (Aspirin) 81 Mg Tab.chew 81 Mg PO DAILY Lipitor (Atorvastatin Calcium) 40 Mg Tablet 40 Mg PO HS Clopidogrel (Clopidogrel Bisulfate) 75 Mg Tablet 75 Mg PO DAILY Instructions to patient/family Please see electronic discharge instructions given to patient. Clinical Quality Measures AMI/AHF: ASA po Prior to arrival: Yes (81 MG) Copy Copies To 1: OSCAR DORSEY MD, KATELYN M MD Oct 20, 2020 10:26
[2020-10-20 11:08] VITALS: BP 143/86
[2020-10-20] MEDS ORDERED: PANTOPRAZOLE 40 MG (PROTONIX) TAB PO SCH (21:00)
== END 2020-10-20 11:08 | disposition home or self-care (01) | DRG 247 ==
LOC: ER FS 10:10 → ICU 14:00 → 4TH 10-19 11:00
PROVIDERS: ADMIT Family Medicine; ATTEND Family Medicine
PROC: 027034Z Dilation of Coronary Artery, One Artery with Drug-eluting Intraluminal Device, Percutaneous Approach (ICD-10-PCS; principal; 2020-10-18)
PROC: 4A023N7 Measurement of Cardiac Sampling and Pressure, Left Heart, Percutaneous Approach (ICD-10-PCS; 2020-10-18)
PROC: B2111ZZ Fluoroscopy of Multiple Coronary Arteries using Low Osmolar Contrast (ICD-10-PCS; 2020-10-18)
PROC: B2151ZZ Fluoroscopy of Left Heart using Low Osmolar Contrast (ICD-10-PCS; 2020-10-18)
DX: I21.4 Non-ST elevation (NSTEMI) myocardial infarction (principal); K92.0 Hematemesis; I73.9 Peripheral vascular disease, unspecified; I10 Essential (primary) hypertension; F17.210 Nicotine dependence, cigarettes, uncomplicated; Z95.5 Presence of coronary angioplasty implant and graft; G62.9 Polyneuropathy, unspecified; E78.00 Pure hypercholesterolemia, unspecified; R09.02 Hypoxemia; J44.9 Chronic obstructive pulmonary disease, unspecified; Z96.652 Presence of left artificial knee joint; Z88.5 Allergy status to narcotic agent; I25.10 Atherosclerotic heart disease of native coronary artery without angina pectoris
CPT/HCPCS: 36415; 71045; 80048; 80053; 80061; 83735; 83874; 84100; 84484; 85014; 85018; 85025; 85610; 85730; 86850; 86900; 86901; 87081; 93005; 93041; 93306; 93458

== ENCOUNTER 2020-10-23 17:04 | Emergency (ER) | payer BC ==
[~2020-10-23] VITALS: Ht 170.2 cm; Wt 76.7 kg
[~2020-10-23 17:04] MED LIST: ASPI-1238 PO; ASPI81TA64 PO; ATOR40TA PO; CLOP75TA28 PO; EZET10TA17 PO; LISI10TA25 PO; LISI40TA9 PO; METO-351 PO
[2020-10-23] MEDS ORDERED: ONDANSETRON 4 MG/2 ML (SDV) Z0FRAN ONE (18:04)
[2020-10-23] MEDS ORDERED: ONDANSETRON 4 MG/2 ML (SDV) Z0FRAN IVP ONE (18:15)
[2020-10-23 18:16] LABS: BASOPHILS # (AUTO) 0.1 10^3/uL (0.0-0.1); BASOPHILS % (AUTO) 1 % (0-10); EOSINOPHILS # (AUTO) 0.4 10^3/uL (0.0-0.3); EOSINOPHILS % (AUTO) 3 % (0-10); HEMATOCRIT 54 % (40-54); HEMOGLOBIN 17.7 g/dL (13.3-17.7); LYMPHOCYTES # (AUTO) 2.5 10^3/uL (1.0-4.0); LYMPHOCYTES % (AUTO) 23 % (12-44); MEAN CORPUSCULAR HEMOGLOBIN 29 pg (25-34); MEAN CORPUSCULAR HGB CONC 33 g/dL (32-36); MEAN CORPUSCULAR VOLUME 88 fL (80-99); MEAN PLATELET VOLUME 9.7 fL (9.0-12.2); MONOCYTES # (AUTO) 1.2 10^3/uL (0.0-1.0); MONOCYTES % (AUTO) 11 % (0-12); NEUTROPHILS % (AUTO) 62 % (42-75); PLATELET COUNT 262 10^3/uL (130-400); WHITE BLOOD COUNT 11.2 10^3/uL (4.3-11.0)
[2020-10-23 18:22] LABS: PROTHROMBIN TIME PATIENT 13.5 SEC (12.2-14.7)
[2020-10-23 18:31] LABS: ALANINE AMINOTRANSFERASE 22 U/L (0-55); ALBUMIN 3.7 GM/DL (3.2-4.5); ALKALINE PHOSPHATASE 119 U/L (40-136); AMYLASE 40 U/L (25-125); BILIRUBIN,TOTAL 0.2 MG/DL (0.1-1.0); BUN/CREATININE RATIO 16; CALCIUM 9.2 MG/DL (8.5-10.1); CARBON DIOXIDE 23 MMOL/L (21-32); CHLORIDE 107 MMOL/L (98-107); GFR ESTIMATED > 60; GLUCOSE 123 MG/DL (70-105); LIPASE 23 U/L (8-78); MAGNESIUM 1.8 MG/DL (1.6-2.4); SODIUM 139 MMOL/L (135-145); TOTAL PROTEIN 7.1 GM/DL (6.4-8.2)
--- NOTE | 2020-10-23 18:37 | Diagnostic Imaging Report ---
EXAMINATION: Chest radiograph, portable AP view. DATE: 10/23/2020 6:30 PM INDICATION: 60-year-old male, dyspnea and fever. COMPARISON: October 19, 2020. FINDINGS: Stable overall appearance of the cardiomediastinal silhouette. There is no identified pneumothorax. There is no large pleural effusion. There are coarse interstitial lung opacities which are unchanged. IMPRESSION: 1. Coarse bilateral interstitial opacities most likely reflecting chronic lung changes. Interstitial edema or atypical infection would be difficult to exclude considering comparison imaging is only available to October 18, 2020. Dictated by: Dictated on workstation # [id number]
--- NOTE | 2020-10-23 18:45 | ED General ---
General Chief Complaint: Post OP Complications/Pain Stated Complaint: POST HEART CATH/PAIN AT INCISION SITE/O2 LEVEL 89 Nursing Triage Note: PT AMBULATE TO ROOM 02 WITH C/O RIGHT GROIN PAIN. PT REPORTS HAVING A HEART CATH ON 10/18/20 HAVING A STENT PLACED Nursing Sepsis Screen: No Definite Risk Source of Information: Patient History of Present Illness Date Seen by Provider: Oct 23, 2020 Time Seen by Provider: 18:08 Initial Comments PT ARRIVES VIA POV--SENT HERE FROM [facility] PT HAD CARDIAC CATH ON 10/18/20--WAS ADMITTED FOR NSTEMI AND HAD EMERGENT CARDIAC CATH WITH STENT TO RCA BY DR. LOCK PT STATES HE HAS HAD CONTINUED PAIN, SWELLING AND BRUISING TO RIGHT GROIN SINCE PROCEDURE--HAS NOT TAKEN ANYTHING FOR PAIN AT ANY TIME ADDITIONALLY, PT C/O FEVER OF 101.9 PERSISTENTLY SINCE HE WAS DISMISSED + SHORTNESS OF BREATH SINCE PROCEDURE NO INCREASE IN CHRONIC COUGH AND IS NON-PRODUCTIVE NO CHEST PAIN HAS HAD ONGOING NAUSEA SINCE PROCEDURE AND VOMITED X 1 ON ARRIVAL TO ER. NO SWELLING IN LEGS/ FEET OR PAIN IN CALVES. NO PARESTHESIAS OR MOTOR DEFICITS. NO PROBLEMS URINATING. STATES HIS LISINOPRIL WAS DECREASED FROM 20 MG TO 10 MG, AND HE WAS STARTED ON METOPROLOL WITH RECENT ADMIT. PT IS ON PLAVIX AND ASPIRIN SEEN AT [facility] IN [place], AND SENT HERE, AND ALSO CALLED DR. LOCK'S OFFICE AND WAS TOLD TO COME HERE TO GET AN ULTRASOUND OF HIS RIGHT GROIN. REPORTEDLY, HIS O2 SATS WERE 87-89% AT [facility]. PT REPORTS THAT HE HAS HAD 10 STENTS IN HIS LEGS, IN THE PAST. PCP: DR. WHEAT, [place] [employer]: DR. LOCK. Allergies and Home Medications Allergies Coded Allergies: morphine (Verified Allergy, Intermediate, ITCHING AND HALLUCINATIONS, 10/18/20) Home Medications Aspirin 81 Mg Tab.chew, 81 MG PO DAILY Prescribed by: MARGARET DE LA VEGA on 10/20/20 075 Atorvastatin Calcium 40 Mg Tablet, 40 MG PO HS Prescribed by: MARGARET DE LA VEGA on 10/20/20 075 Cefdinir 300 Mg Capsule, 300 MG PO BID Prescribed by: BRANDO PATINO on 10/23/202045 Clopidogrel Bisulfate 75 Mg Tablet, 75 MG PO DAILY Prescribed by: MARGARET DE LA VEGA on 10/20/20 075 Lisinopril 10 Mg Tablet, 10 MG PO DAILY Prescribed by: MARGARET DE LA VEGA on 10/20/20749 Metoprolol Succinate 25 Mg Tab.er.24h, 25 MG PO DAILY Prescribed by: MARGARET DE LA VEGA on 10/20/20749 Ondansetron 4 Mg Tab.rapdis, 4 MG PO Q4H Prescribed by: BRANDO PATINO on 10/23/202101 Pantoprazole Sodium 40 Mg Tablet.dr, 40 MG PO DAILY Prescribed by: BRANDO PATINO on 10/23/202101 Patient Home Medication List Home Medication List Reviewed: Yes Review of Systems Review of Systems Constitutional: see HPI, fever EENTM: no symptoms reported; No nose pain, No throat pain Respiratory: see HPI, cough, short of breath Cardiovascular: see HPI; No chest pain, No edema, No palpitations, No syncope Gastrointestinal: see HPI, abdominal pain (RLQ), nausea, vomiting Genitourinary: no symptoms reported Musculoskeletal: see HPI Skin: other (BRUISING TO RIGHT GROIN) Psychiatric/Neurological: No Symptoms Reported Hematologic/Lymphatic: See HPI (BRUISING TO RIGHT GROIN) Immunological/Allergic: no symptoms reported Past Wxnegxn-Qyhxgr-Bpmdok Hx Past Med/Social Hx: Reviewed and Corrections made Patient Social History Alcohol Use: Occasionally Uses Drug of Choice: DENIES Smoking Status: Current Everyday Smoker (1 PPD) Type Used: Cigarettes 2nd Hand Smoke Exposure: Yes Recent Infectious Disease Expo: No Recent Hopitalizations: No Seasonal Allergies Seasonal Allergies: No Past Medical History Surgeries: Yes (10 STENTS IN LEGS;R KNEE SCOPE;L KNEE REPLACEMENT;RT ARM NERVE SX;CARD CATH) Coronary Stent, Neurological, Orthopedic, Vascular Surgery Respiratory: No Cardiac: Yes (STENTS X 10 IN LEGS; STENT X 1 TO RCA WITH NSTEMI 10/18/20; RBBB) Coronary Artery Disease, Heart Attack, High Cholesterol, Hypertension, Peripheral Vascular Neurological: Yes Neuropathy Genitourinary: No Gastrointestinal: No Musculoskeletal: Yes (KNEE SURGERIES) Endocrine: No HEENT: No Cancer: No Psychosocial: No Integumentary: No Blood Disorders: No Family Medical History Heart Disease, Diabetes Physical Exam Vital Signs Vital Signs - First Documented 10/23/20 10/23/20 17:30 21:00 Temp 35.7 Pulse 81 Resp 17 B/P (MAP) 138/89 (105) Pulse Ox 97 O2 Delivery Room Air Capillary Refill : Less Than 3 Seconds Height, Weight, BMI Height: '" Weight: lbs. oz. kg; 26.00 BMI Method: General Appearance: No Apparent Distress, WD/WN, Anxious, Other (REEKS OF CIGARETTES) Neck: Normal Inspection Respiratory: Normal Breath Sounds, No Accessory Muscle Use, No Respiratory Distress Cardiovascular: Regular Rate, Rhythm, No Edema, No JVD, No Murmur, Normal Peripheral Pulses Gastrointestinal: Soft, Tenderness (GENERALIZED ABDOMINAL TENDERNESS, MOST IN RLQ. ) Extremity: Normal Capillary Refill, Normal Range of Motion, No Calf Tenderness, No Pedal Edema, Other (RIGHT GROIN WITH OLD BRUISING AND MILD SWELLING AROUND RECENT CARDIAC CATH SITE. DOES NOT EXTEND DOWN THIGH. NO PULSATILE MASS IN AREA. ) Neurologic/Psychiatric: Alert, Oriented x3, No Motor/Sensory Deficits, affirmative action officer II- XII Norm as Tested Skin: Normal Color, Warm/Dry, Ecchymosis ( ABOVE) Focused Exam Lactate Level 10/23/20 18:35: Lactic Acid Level 1.53 Lactic Acid Level Laboratory Tests Test 10/23/20 18:35 Lactic Acid Level 1.53 MMOL/L (0.50-2.00) Progress/Results/Core Measures Suspected Sepsis Recent Fever Within 48 Hours: No Infection Criteria Present: None New/Unexplained Altered Menta: No Sepsis Screen: No Definite Risk SIRS Temperature: Pulse: 81 Respiratory Rate: 17 Laboratory Tests 10/23/20 17:40: White Blood Count 11.2H Blood Pressure 138 /89 Mean: 105 10/23/20 18:35: Lactic Acid Level 1.53 Laboratory Tests 10/23/20 17:40: Creatinine 1.00, INR Comment 1.0, Platelet Count 262, Total Bilirubin 0.2 Results/Orders Lab Results Laboratory Tests Test 10/23/20 17:40 10/23/20 18:35 10/23/20 18:43 Range/Units White Blood Count 11.2 H 4.3-11.0 10^3/uL Red Blood Count 6.11 H 4.30-5.52 10^6/uL Hemoglobin 17.7 13.3-17.7 g/dL Hematocrit 54 40-54 % Mean Corpuscular Volume 88 80-99 fL Mean Corpuscular Hemoglobin 29 25-34 pg Mean Corpuscular Hemoglobin Concent 33 32-36 g/dL Red Cell Distribution Width 14.1 10.0-14.5 % Platelet Count 262 130-400 10^3/uL Mean Platelet Volume 9.7 9.0-12.2 fL Immature Granulocyte % (Auto) 0 % Neutrophils (%) (Auto) 62 42-75 % Lymphocytes (%) (Auto) 23 12-44 % Monocytes (%) (Auto) 11 0-12 % Eosinophils (%) (Auto) 3 0-10 % Basophils (%) (Auto) 1 0-10 % Neutrophils # (Auto) 7.0 1.8-7.8 10^3/uL Lymphocytes # (Auto) 2.5 1.0-4.0 10^3/uL Monocytes # (Auto) 1.2 H 0.0-1.0 10^3/uL Eosinophils # (Auto) 0.4 H 0.0-0.3 10^3/uL Basophils # (Auto) 0.1 0.0-0.1 10^3/uL Immature Granulocyte # (Auto) 0.0 0.0-0.1 10^3/uL Prothrombin Time 13.5 12.2-14.7 SEC INR Comment 1.0 0.8-1.4 Activated Partial Thromboplast Time 27 24-35 SEC D-Dimer 3.25 H 0.00-0.49 UG/ML Sodium Level 139 135-145 MMOL/L Potassium Level 4.0 3.6-5.0 MMOL/L Chloride Level 107 98-107 MMOL/L Carbon Dioxide Level 23 21-32 MMOL/L Anion Gap 9 5-14 MMOL/L Blood Urea Nitrogen 16 7-18 MG/DL Creatinine 1.00 0.60-1.30 MG/DL Estimat Glomerular Filtration Rate > 60 BUN/Creatinine Ratio 16 Glucose Level 123 H 70-105 MG/DL Calcium Level 9.2 8.5-10.1 MG/DL Corrected Calcium 9.4 8.5-10.1 MG/DL Magnesium Level 1.8 1.6-2.4 MG/DL Total Bilirubin 0.2 0.1-1.0 MG/DL Aspartate Amino Transf (AST/SGOT) 20 5-34 U/L Alanine Aminotransferase (ALT/SGPT) 22 0-55 U/L Alkaline Phosphatase 119 40-136 U/L Lactate Dehydrogenase 188 125-220 U/L Myoglobin 21.1 10.0-92.0 NG/ML Troponin I 0.418 *H <0.028 NG/ML C-Reactive Protein High Sensitivity 3.01 H 0.00-0.50 MG/DL B-Type Natriuretic Peptide 63.0 <100.0 PG/ML Total Protein 7.1 6.4-8.2 GM/DL Albumin 3.7 3.2-4.5 GM/DL Amylase Level 40 25-125 U/L Lipase 23 8-78 U/L Procalcitonin 0.04 <0.10 NG/ML Erythrocyte Sedimentation Rate 2 0-30 MM/HR Lactic Acid Level 1.53 0.50-2.00 MMOL/L Coronavirus 2019 (MARQUITA) Negative Negative Micro Results Microbiology 10/23/20 Influenza Types A,B Antigen (ELIA) - Final, Complete My Orders Orders - BRANDO PATINO DO Ed Iv/Invasive Line Start (10/23/20 18:09) Monitor-Rhythm Ecg Trace Only (10/23/20 18:09) Amylase (10/23/20 18:09) Cbc With Automated Diff (10/23/20 18:09) Comprehensive Metabolic Panel (10/23/20 18:09) Lipase (10/23/20 18:09) Protime With Inr (10/23/20 18:09) Partial Thromboplastin Time (10/23/20 18:09) Ua Culture If Indicated (10/23/20 18:09) Ondansetron Injection (Zofran Injectio (10/23/20 18:15) Ekg Tracing (10/23/20 18:10) O2 (10/23/20 18:10) BNP (10/23/20 18:10) Lactic Acid Analyzer (10/23/20 18:10) Magnesium (10/23/20 18:10) Procalcitonin (Pct) (10/23/20 18:10) Blood Culture (10/23/20 18:10) Influenza A And B Antigens (10/23/20 18:10) Troponin I (10/23/20 18:10) Us Right Low Ext [id number] (10/23/20 18:16) Hs C Reactive Protein (10/23/20 18:16) Erythrocyte Sedimentation Rate (10/23/20 18:16) Myoglobin Serum (10/23/20 18:16) Fibrin Degradation Products (10/23/20 18:16) LDH (10/23/20 18:16) Coronavirus Sars-Cov-2 So 2018 (10/23/20 18:16) Covid 19 Inhouse Test (10/23/20 18:16) Chest 1 View, Ap/Pa Only (10/23/20 18:21) Ct Angio Chst/Abd/Pelv W (10/23/20 18:48) Iohexol Injection (Omnipaque 350 Mg/Ml 1 (10/23/20 19:00) Received Contrast (Hold Metformin- Contr (10/23/20 19:00) Ns (Ivpb) (Sodium Chloride 0.9% Ivpb Bag (10/23/20 19:00) Ceftriaxone For Iv Use (Rocephin For I (10/23/20 20:45) Medications Given in ED Current Medications Medications Dose Ordered Sig/Stoney Route Start Time Stop Time Status Last Admin Dose Admin Ceftriaxone Sodium 1000 mg/ Sterile Water 10 ml @ 200 mls/hr ONCE ONCE IV 10/23/20 20:45 10/23/20 20:47 DC 10/23/20 20:54 200 MLS/HR Iohexol 75 ml ONCE ONCE IV 10/23/20 19:00 10/23/20 19:02 DC 10/23/20 19:58 92 ML Ondansetron HCl 8 mg ONCE ONCE IVP 10/23/20 18:15 10/23/20 18:16 DC 10/23/20 18:12 8 MG Sodium Chloride 100 ml ONCE ONCE IV 10/23/20 19:00 10/23/20 19:02 DC 10/23/20 19:58 80 ML Vital Signs/I&O 10/23/20 10/23/20 17:30 21:00 Temp 35.7 Pulse 81 81 Resp 17 17 B/P (MAP) 138/89 (105) 134/75 Pulse Ox 97 O2 Delivery Room Air Room Air 10/24/20 00:00 Intake Total 10 ml Balance 10 ml Capillary Refill : Less Than 3 Seconds Blood Pressure Mean: 105 Progress Note : Progress Note PLACED IN ISOLATION ROOM PPE WORN COVID-19 TESTING PERFORMED PT ADVISED OF NEED FOR QUARANTINE PT VOMITED ON ARRIVAL, GIVEN ZOFRAN WITH RESOLUTION OF NAUSEA AND NO FURTHER GI COMPLAINTS UNEVENTFUL ER STAY O2 SATS REMAINED 96-98% ON ROOM AIR. ECG Initial ECG Impression Date: Oct 23, 2020 Initial ECG Impression Time: 18:30 Initial ECG Rate: 81 Initial ECG Rhythm: Normal Sinus (RBBB) Initial ECG Impression: Nonspecific Changes Initial ECG Comparisson: Unchanged Diagnostic Imaging Comments CXR--PER RADIOLOGIST REPORT AT 1845 FINDINGS: Stable overall appearance of the cardiomediastinal silhouette. There is no identified pneumothorax. There is no large pleural effusion. There are coarse interstitial lung opacities which are unchanged. IMPRESSION: 1. Coarse bilateral interstitial opacities most likely reflecting chronic lung changes. Interstitial edema or atypical infection would be difficult to exclude considering comparison imaging is only available to October 18, 2020. ULTRASOUND RIGHT GROIN--NO PSEUDOANEURYSM, PER TECH REPORT AT 1925 AND PER RADIOLOGIST REPORT AT 1944 FINDINGS: No evidence of pseudoaneurysm is seen in the right groin. The right common femoral artery is patent. No evidence of hematoma. IMPRESSION: No evidence of pseudoaneurysm in the right groin. No significant hematoma. CT ANGIOGRAM CHEST/ABDOMEN/PELVIS-=-PER RADIOLOGIST REPORT AT 2028 FINDINGS: There is a calcified right upper lobe granuloma. There is a noncalcified 6 mm right upper lobe pulmonary nodule on axial image 50. There is a noncalcified 6 mm right upper lobe pulmonary nodule on axial image 70. There is a 4 mm noncalcified right middle lobe pulmonary nodule on axial image 79. There is no lung mass. There is no additional focal airspace consolidation. There are extensive findings of emphysema. There is mild dependent atelectasis in the right and left lower lobes. There is no pneumothorax. There is no pleural effusion. The central airways are patent. There is no identified pulmonary embolus. The main pulmonary artery is normal in caliber. The heart is not enlarged. There is no pericardial effusion. There are atherosclerotic calcifications. There is a right hilar lymph node on axial image 54 measuring 15 mm in short axis. There is no additional identified abnormally enlarged hilar, mediastinal, or axillary lymph node meeting size criteria for adenopathy. There is extensive atherosclerotic disease involving the left subclavian artery in its proximal aspect. There is no evidence of acute aortic injury. There is no evidence of aortic dissection. There is no aneurysmal dilation of the thoracic aorta. There is an aortobiiliac stent graft which is patent. There is aneurysmal dilation of the infrarenal abdominal aorta up to maximally 2.9 x 2.9 cm in diameter. The liver is unremarkable in size and contour. There is no identified liver lesion. The gallbladder is unremarkable. There is no identified biliary ductal dilation. The main pancreatic duct is not abnormally dilated. Unremarkable appearance of the pancreatic parenchyma. The spleen is normal in size. The adrenal glands are unremarkable. There is a low-attenuation left renal lesion measuring 3.9 cm in size compatible with a benign cyst. There is no identified renal or ureteral stone. The urinary bladder is unremarkable. The intestinal tract is not distended. The appendix is unremarkable. There is a small hiatal hernia. There is no free intraperitoneal air. There is no drainable fluid collection. There is no free pelvic fluid. There are surgical clips in the right inguinal region. There is no identified pseudoaneurysm or hematoma. There is no identified abnormally enlarged lymph node in the abdomen or pelvis meeting CT size criteria for adenopathy. There are degenerative changes of the spine. There is no identified acute bony abnormality. IMPRESSION: CT chest, abdomen, pelvis. 1. No identified pulmonary embolus or other acute cardiopulmonary abnormality. 2. Extensive findings of emphysema. 3. Abnormally enlarged right hilar lymph node measuring 1.5 cm in short axis of uncertain exact etiology. No additionally identified abnormally enlarged lymph node. 4. Fairly prominent atherosclerotic disease. No evidence of acute aortic injury or aortic dissection. 5. No identified acute abnormality in the abdomen or pelvis. Reviewed: Reviewed by Me Departure Impression Primary Impression: POST OP PAIN RIGHT GROIN Additional Impressions: FEVER--POSSIBLE BRONCHITIS Nausea & vomiting Person under investigation for COVID-19 Disposition: 01 HOME, SELF-CARE Condition: Improved Departure-Patient Inst. Referrals: SELFRICARDA MD (PCP/Family) Primary Care Physician Patient Instructions: Acute Bronchitis, Adult (DC), Nausea and Vomiting, Adult, Postoperative Pain (DC), Coronavirus Disease 2019 (COVID-19) ED Add. Discharge Instructions: HOME, REST CONTINUE YOUR CURRENT MEDICATIONS PRESCRIBED TYLENOL AND MOTRIN NEEDED FOR PAIN OR FEVER QUARANTINE YOURSELF AND ALL HOUSEHOLD MEMBERS FOR 2 WEEKS OR UNTIL CLEARED BY OR HEALTH DEPT IF YOU ARE STILL HAVING SYMPTOMS IN A FEW DAYS, YOU NEED TO FOLLOW UP WITH YOUR DR AND YOU MAY NEED TO BE RETESTED FOR COVID-19 Scripts Pantoprazole Sodium (Protonix) 40 Mg Tablet. 40 MG PO DAILY, #15 TAB Prov: BRANDO PATINO DO 10/23/20 Ondansetron (Ondansetron Odt) 4 Mg Tab.rapdis 4 MG PO Q4H for Nausea/Vomiting, #10 TAB Prov: BRANDO PATION DO 10/23/20 Cefdinir (Cefdinir) 300 Mg Capsule 300 MG PO BID, #20 CAP Prov: BRANDO PATINO DO 10/23/20 BRANDO PATINO DO Oct 23, 2020 18:45
[2020-10-23] MEDS ORDERED: HOLD METFORMIN - RECEIVED CONTRAST 20 ML VIAL IV SCH (19:00)
[2020-10-23] MEDS ORDERED: NS 100 ML (IVPB) BAG IV ONE (19:00)
[2020-10-23] MEDS ORDERED: IOHEXOL 350 MG/ML 100 ML (OMNIPAQUE 350) VIAL IV ONE (19:00)
--- NOTE | 2020-10-23 19:42 | Diagnostic Imaging Report ---
TECHNIQUE: Color Doppler and grayscale ultrasound of the right groin was performed. REASON FOR EXAM: Right groin pain. Heart catheter 5 days ago. Evaluate for pseudoaneurysm. COMPARISON: None. FINDINGS: No evidence of pseudoaneurysm is seen in the right groin. The right common femoral artery is patent. No evidence of hematoma. IMPRESSION: No evidence of pseudoaneurysm in the right groin. No significant hematoma. Dictated by: Dictated on workstation # [id number]
--- NOTE | 2020-10-23 20:21 | Diagnostic Imaging Report ---
PROCEDURE: CT angiography of the chest with contrast and CT abdomen and pelvis with contrast. TECHNIQUE: Multiple contiguous axial images were obtained through the chest, abdomen and pelvis after administration of intravenous contrast. 3D MIP reconstructed CT angiography acquisitions of the aorta were then performed. Auto Exposure Controls were utilized during the CT exam to meet ALARA standards for radiation dose reduction. DATE: October 23, 2020. COMPARISON: Chest radiograph October 23, 2020. INDICATION: 60-year-old male, chest and right inguinal pain. Shortness of breath. Fever. FINDINGS: There is a calcified right upper lobe granuloma. There is a noncalcified 6 mm right upper lobe pulmonary nodule on axial image 50. There is a noncalcified 6 mm right upper lobe pulmonary nodule on axial image 70. There is a 4 mm noncalcified right middle lobe pulmonary nodule on axial image 79. There is no lung mass. There is no additional focal airspace consolidation. There are extensive findings of emphysema. There is mild dependent atelectasis in the right and left lower lobes. There is no pneumothorax. There is no pleural effusion. The central airways are patent. There is no identified pulmonary embolus. The main pulmonary artery is normal in caliber. The heart is not enlarged. There is no pericardial effusion. There are atherosclerotic calcifications. There is a right hilar lymph node on axial image 54 measuring 15 mm in short axis. There is no additional identified abnormally enlarged hilar, mediastinal, or axillary lymph node meeting size criteria for adenopathy. There is extensive atherosclerotic disease involving the left subclavian artery in its proximal aspect. There is no evidence of acute aortic injury. There is no evidence of aortic dissection. There is no aneurysmal dilation of the thoracic aorta. There is an aortobiiliac stent graft which is patent. There is aneurysmal dilation of the infrarenal abdominal aorta up to maximally 2.9 x 2.9 cm in diameter. The liver is unremarkable in size and contour. There is no identified liver lesion. The gallbladder is unremarkable. There is no identified biliary ductal dilation. The main pancreatic duct is not abnormally dilated. Unremarkable appearance of the pancreatic parenchyma. The spleen is normal in size. The adrenal glands are unremarkable. There is a low-attenuation left renal lesion measuring 3.9 cm in size compatible with a benign cyst. There is no identified renal or ureteral stone. The urinary bladder is unremarkable. The intestinal tract is not distended. The appendix is unremarkable. There is a small hiatal hernia. There is no free intraperitoneal air. There is no drainable fluid collection. There is no free pelvic fluid. There are surgical clips in the right inguinal region. There is no identified pseudoaneurysm or hematoma. There is no identified abnormally enlarged lymph node in the abdomen or pelvis meeting CT size criteria for adenopathy. There are degenerative changes of the spine. There is no identified acute bony abnormality. IMPRESSION: CT chest, abdomen, pelvis. 1. No identified pulmonary embolus or other acute cardiopulmonary abnormality. 2. Extensive findings of emphysema. 3. Abnormally enlarged right hilar lymph node measuring 1.5 cm in short axis of uncertain exact etiology. No additional identified abnormally enlarged lymph node. 4. Fairly prominent atherosclerotic disease. No evidence of acute aortic injury or aortic dissection. 5. No identified acute abnormality in the abdomen or pelvis. Dictated by: Dictated on workstation # [id number]
[2020-10-23] MEDS ORDERED: cefTRIAXone FOR IV USE 1,000 MG in WATER (STERILE) FOR INJECTION 10 ML IV ONE (20:45)
[2020-10-23] MEDS ORDERED: CEFD300C3 PO (20:46)
[2020-10-23 21:00] VITALS: BP 134/75
[2020-10-23] MEDS ORDERED: ONDA4TAB11 PO (21:02)
[2020-10-23] MEDS ORDERED: PANT40TA2 PO (21:02)
== END 2020-10-23 21:00 | disposition home or self-care (01) ==
LOC: EDUNIT# 17:04 → ER 17:05
DX: G89.18 Other acute postprocedural pain (principal); R50.9 Fever, unspecified; R11.2 Nausea with vomiting, unspecified; E78.00 Pure hypercholesterolemia, unspecified; I10 Essential (primary) hypertension; I25.2 Old myocardial infarction; F17.210 Nicotine dependence, cigarettes, uncomplicated; Z20.822 Contact with and (suspected) exposure to COVID-19; Z88.5 Allergy status to narcotic agent; Z83.3 Family history of diabetes mellitus; Z95.5 Presence of coronary angioplasty implant and graft; Z79.82 Long term (current) use of aspirin
CPT/HCPCS: 71045; 71275; 74174; 80053; 82150; 83605; 83615; 83690; 83735; 83874; 83880; 84145; 84484; 85025; 85379; 85610; 85652; 85730; 86141; 87040; 87804; 93041; 93926; U0002; 36415; 87635; 93005

== ENCOUNTER → 2021-09-21 | Outpatient (CLI) | payer OTHER ==
[~2021-09-21] MED LIST changes: +CEFD300C3 PO; +ONDA4TAB11 PO; +PANT40TA2 PO
== END ==
LOC: CARD 09:30
PROVIDERS: ATTEND Nurse Practitioner Family
DX: I25.10 Atherosclerotic heart disease of native coronary artery without angina pectoris (principal)
CPT/HCPCS: 93306

== ENCOUNTER → 2021-11-02 | Outpatient (CLI) | payer OTHER ==
[~2021-11-02] VITALS: Ht 170 cm; Wt 72.0 kg
[~2021-11-02] MED LIST changes: +CATHETER FLUSH 10 ML SYR IVP PRN; +REGADENOSON 0.4 MG/5 ML SYR (LEXISCAN) IV ONE
[2021-11-02 08:51] VITALS: BP 155/93
--- NOTE | 2021-11-05 12:29 | STRESS TEST ---
DATE OF SERVICE: RESTING AND POST REGADENOSON TECHNETIUM-99M TETROFOSMIN SPECT CT IMAGING ORDERING PHYSICIAN: ARELY Mills. OTHER PHYSICIAN: Dr. Dorsey. CLINICAL DIAGNOSIS: Coronary artery disease. Baseline images were carried out after injection of 10.71 mCi of technetium-99m Tetrofosmin. This was followed by 0.4 mg regadenoson and 29.7 mCi of technetium-99m Tetrofosmin. The electrocardiogram showed sinus rhythm with right bundle branch block. It did not change significantly with the regadenoson infusion. He tolerated the procedure well. Review of images at rest and following stress indicates a small basal inferior perfusion defect, which appears transient. Gated images show normal global left ventricular systolic function with normal regional wall motion. Left ventricular ejection fraction is calculated to be 60%. CONCLUSIONS: 1. The study is indicative of a small amount of basal inferior ischemia. 2. Normal regional wall motion. 3. Normal global left ventricular systolic function with a calculated ejection fraction of 60%. Job ID: [id number] DocumentID: [id number] Dictated Date: 11/05/2021 09:43:00 Manager Operations [employer]ment Date: 11/05/2021 12:28:45 Dictated By: JACKELYN LOCK MD, MA, FACP, FACC,
== END ==
LOC: CARD 07:30
PROVIDERS: ATTEND Nurse Practitioner
DX: I25.10 Atherosclerotic heart disease of native coronary artery without angina pectoris (principal)
CPT/HCPCS: 78452; 93017